=== PATIENT | male | born 1980 | race Caucasian/White ===

== ENCOUNTER → 2021-01-01 | Day surgery (SDC) | payer OTHER ==
[~2021-01-01] MED LIST: ACETAMINOPHEN500 M1 PO; COLACE100 MG PO; MOTRIN600 MG PO; OXY-IR 5MG5 MG PO
[2021-01-01 16:33] LABS: BASOPHIL 0.5 % (0-2); EOSINOPHIL 0.6 % (0-5); HCT 45.4 % (42.0-52.0); HGB 15.4 g/dl (13.2-18.0); LYMPHOCYTE 11.6 % (15-48); MCH 31.4 pg (25.0-31.0); MCHC 33.9 g/dL (32.0-36.0); MCV 92.7 fL (78.0-100.0); MONOCYTE 6.3 % (0-12); MPV 9.4 fL (6.0-9.5); NEUTROPHIL 80.6 % (41-80); NRBC 0; PLT 320 K/uL (150-400); RDW 12.8 % (11.5-14.0); WBC 17.7 K/uL (4.0-10.5)
[2021-01-01 16:34] LABS: BILIRUBIN NEGATIVE (NEGATIVE); BLOOD NEGATIVE Ery/uL (NEGATIVE); CLARITY CLEAR (CLEAR); COLOR YELLOW (YELLOW); GLUCOSE (U) NORMAL (NORMAL); LEUKOCYTES NEGATIVE Leu/uL (NEGATIVE); NITRITE NEGATIVE (NEGATIVE); PROTEIN NEGATIVE (NEGATIVE); UROBILINOGEN 0.2 mg/dL (0.2-1.0)
[2021-01-01 16:38] LABS: INR 1.04 (0.9-1.2)
[2021-01-01 16:40] LABS: AMPHETAMINES NEGATIVE (NEGATIVE); BARBITURATES NEGATIVE (NEGATIVE); ECSTASY (MDMA) NEGATIVE (NEGATIVE); MARIJUANA (THC) POSITIVE (NEGATIVE); METHADONE NEGATIVE (NEGATIVE); OPIATES NEGATIVE (NEGATIVE); OXYCODONE NEGATIVE (NEGATIVE)
[2021-01-01 16:48] LABS: ALBUMIN 4.1 g/dL (3.4-5.0); ALKALINE PHOSHATASE 62 U/L (46-116); ALT 134 U/L (16-63); AST 67 U/L (15-37); BILIRUBIN - TOTAL 0.5 mg/dL (0.2-1.0); BUN 10 mg/dL (7-18); BUN/CREAT RATIO (CALC) 11.4 RATIO; CHLORIDE 104 mmol/L (98-107); CO2 (BICARBONATE) 27 mmol/L (21-32); CREATININE 0.88 mg/dL (0.67-1.17); GLOBULIN (CALCULATION) 3.5 g/dL; GLUCOSE 97 mg/dL (74-106); LIPASE 74 U/L (73-393); POTASSIUM 4.1 mmol/L (3.5-5.1); TOTAL PROTEIN 7.6 g/dL (6.4-8.2)
== END | disposition home or self-care (01) ==
LOC: FER 15:14 → FOR 19:58
PROVIDERS: Emergency Medicine
DX: K35.80 Unspecified acute appendicitis (principal); E78.5 Hyperlipidemia, unspecified; F12.10 Cannabis abuse, uncomplicated; F10.10 Alcohol abuse, uncomplicated; L40.9 Psoriasis, unspecified; F17.210 Nicotine dependence, cigarettes, uncomplicated; Z20.822 Contact with and (suspected) exposure to COVID-19
CPT/HCPCS: 36415; 80053; 80305; 81003; 83690; 85025; 85610; 87040; G0480; J1100; J1170; J1644; J2250; J2270; J2405; J2704; J3010; J7120; Q9967; U0002